=== PATIENT | female | born 1990 | race Two or more races ===

== ENCOUNTER 2024-12-01 00:03 | Emergency (ER) | payer OTHER ==
[~2024-12-01] VITALS: Ht 160 cm; Wt 79.8 kg
[2024-12-01 00:10] VITALS: BP 141/91; TEMP 97.5; O2SAT 100
== END 2024-12-01 02:09 | disposition home or self-care (01) ==
LOC: M ED 00:03
DX: B07.0 Plantar wart (principal)

== ENCOUNTER 2025-01-06 23:42 | Emergency (ER) | payer OTHER ==
[~2025-01-06] VITALS: Ht 162.6 cm; Wt 79.6 kg
[2025-01-06] MEDS ORDERED: CIPR500T39 (23:45)
[2025-01-07 02:46] LABS: BASO # 0.1 10^3/uL (0.0-0.2); BASO % 0.7 % (0.0-1.0); EOS # 0.2 10^3/uL (0.0-0.5); EOS % 1.8 % (0.0-3.0); HEMATOCRIT 40.1 % (36.0-47.0); HEMOGLOBIN 13.7 g/dl (12.0-15.5); LYMPH # 3.2 10^3/uL (1.5-5.0); LYMPH % 35.9 % (24.0-44.0); MEAN CORPUSCULAR HEMOGLOBIN 31.3 pg (27.0-33.0); MEAN CORPUSCULAR HGB CONC 34.2 g/dl (32.0-36.5); MEAN CORPUSCULAR VOLUME 91.6 fl (80.0-96.0); MONO # 0.8 10^3/uL (0.0-0.8); MONO % 8.6 % (2.0-8.0); NEUTROPHILS # 4.7 10^3/uL (1.5-8.5); NEUTROPHILS % 52.8 % (36.0-66.0); PLATELET COUNT, AUTOMATED 231 10^3/uL (150-450); RED BLOOD COUNT 4.38 10^6/uL (4.00-5.40); WHITE BLOOD COUNT 8.8 10^3/uL (4.0-10.0)
[2025-01-07 02:47] LABS: KETONE, URINE AUTO RFX NEGATIVE (NEGATIVE); LEUKOCYTE ESTERASE UR AUTO RFX NEGATIVE (NEGATIVE); MUCUS, URINE RFX SMALL (NEGATIVE); NITRITE, URINE AUTO RFX NEGATIVE (NEGATIVE); RBC, URINE AUTO RFX 0 /HPF (0-3); SQUAM EPITHELIAL CELL UR AURFX 2 /HPF (0-6); WBC, URINE AUTO RFX 1 /HPF (0-3)
[2025-01-07 03:16] LABS: BLOOD UREA NITROGEN 16 MG/DL (9-23); CARBON DIOXIDE LEVEL 25 MMOL/L (20-31); CHLORIDE LEVEL 109 MMOL/L (98-107); CREATININE FOR GFR 0.84 MG/DL (0.55-1.30); GLOMERULAR FILTRATION RATE > 60.0 (>60); GLUCOSE, FASTING 98 MG/DL (60-100); POTASSIUM SERUM 4.1 MMOL/L (3.5-5.1); SODIUM LEVEL 144 MMOL/L (136-145)
[2025-01-07 03:51] VITALS: BP 110/72; TEMP 97.5; O2SAT 100
== END 2025-01-07 03:51 | disposition home or self-care (01) ==
LOC: M ED 23:42
DX: R10.9 Unspecified abdominal pain (principal)

== ENCOUNTER 2025-03-07 06:01 | Observation (INO) | payer OTHER ==
[~2025-03-07] VITALS: Ht 162.6 cm; Wt 79.6 kg
[2025-03-07] VITALS (8 sets, daily range): BP systolic 109–141; BP diastolic 63–95; TEMP 97.3–97.7; O2SAT 91–99
[~2025-03-07 06:01] MED LIST: CIPR500T39
[2025-03-07] MEDS ORDERED: ROPIvacaine 0.5% 30ML VIAL ONE (06:03)
[2025-03-07] MEDS ORDERED: TRANEXAMIC ACID 100 MG/ML 10ML VIAL ONE (06:03)
[2025-03-07] MEDS ORDERED: ACETAMINOPHEN 1000MG/100ML IV BAG As Ordered ONE (06:50)
[2025-03-07] MEDS ORDERED: propofoL 200 MG/20 ML VIAL As Ordered ONE (06:50)
[2025-03-07] MEDS ORDERED: LIDOCAINE 2% 100MG/5ML SDV (FOR ANES.) As Ordered ONE (06:50)
[2025-03-07] MEDS ORDERED: ONDANSETRON 4MG 2ML VIAL As Ordered ONE (06:50)
[2025-03-07] MEDS: ceFAZolin SOD 2 GM IV ONCE IV ONE (06:50)
[2025-03-07] MEDS ORDERED: fentaNYL 100 MCG/2 ML INJECTION As Ordered ONE (06:51)
[2025-03-07] MEDS ORDERED: MIDAZOLAM INJ 2MG/2ML VIAL As Ordered ONE (06:51)
[2025-03-07] MEDS ORDERED: ROPIvacaine 0.5% 30ML VIAL As Ordered ONE (07:13)
[2025-03-07] MEDS: LR 1,000 ML IV SCH ×2 (07:16→11:35)
[2025-03-07] MEDS ORDERED: TRANEXAMIC ACID 100 MG/ML 10ML VIAL As Ordered ONE (07:17)
[2025-03-07] MEDS ORDERED: HYDROmorphone HCL 2MG/ML 1ML VIAL As Ordered ONE (07:56)
[2025-03-07] MEDS ORDERED: dexmedeTOMIDine (4MCG/ML)200MCG/50ML BTL (PRECEDEX) As Ordered ONE (09:47)
[2025-03-07] MEDS ORDERED: SUGAMMADEX SODIUM 500 MG/5 ML VIAL As Ordered ONE (09:48)
[2025-03-07] MEDS ORDERED: fentaNYL 100 MCG/2 ML INJECTION IV PRN (11:35)
[2025-03-07] MEDS ORDERED: ONDANSETRON 4MG 2ML VIAL IV PRN (11:35)
[2025-03-07] MEDS: HYDROMORPHONE HCL 0.5 MG/ 0.5 ML SYRINGE IV PRN ×2 (12:03→14:46)
[2025-03-07] MEDS: oxyCODONE 5MG TAB PO PRN ×2 (12:35→19:51)
[2025-03-07] MEDS ORDERED: oxyCODONE 5MG TAB PO ONE (15:25)
[2025-03-07] MEDS: oxyCODONE 5MG TAB PO ONE (16:15)
[2025-03-07] MEDS: MORPHINE 2 MG/ML 1ML VIAL IV STA (16:32)
[2025-03-07] MEDS ORDERED: IBUPROFEN 400MG TAB PO PRN (17:30)
[2025-03-07] MEDS ORDERED: HYDROMORPHONE HCL 0.5 MG/ 0.5 ML SYRINGE IV PRN ×2 (17:40→18:50)
[2025-03-07] MEDS: ONDANSETRON 4MG 2ML VIAL IV PRN (19:50)
[2025-03-07] MEDS: ASPIRIN 81MG ENTERIC TABLET PO SCH (22:13)
[2025-03-07] MEDS: ACETAMINOPHEN 500 MG TAB PO SCH (22:13)
[2025-03-08 00:27] VITALS: BP 107/65; TEMP 97.5; O2SAT 93
[2025-03-08 05:00] VITALS: BP 105/67; TEMP 97.9; O2SAT 96
[2025-03-08 07:23] LABS: BASO % 0.2 % (0.0-1.0); EOS % 0.3 % (0.0-3.0); HEMATOCRIT 35.5 % (36.0-47.0); HEMOGLOBIN 12.1 g/dl (12.0-15.5); LYMPH # 2.8 10^3/uL (1.5-5.0); LYMPH % 24.4 % (24.0-44.0); MEAN CORPUSCULAR HEMOGLOBIN 31.4 pg (27.0-33.0); MEAN CORPUSCULAR HGB CONC 34.1 g/dl (32.0-36.5); MEAN CORPUSCULAR VOLUME 92.2 fl (80.0-96.0); MONO # 1.1 10^3/uL (0.0-0.8); MONO % 9.5 % (2.0-8.0); NEUTROPHILS # 7.3 10^3/uL (1.5-8.5); NEUTROPHILS % 65.1 % (36.0-66.0); PLATELET COUNT, AUTOMATED 221 10^3/uL (150-450); RED BLOOD COUNT 3.85 10^6/uL (4.00-5.40); WHITE BLOOD COUNT 11.3 10^3/uL (4.0-10.0)
[2025-03-08 07:47] LABS: BLOOD UREA NITROGEN 8 MG/DL (9-23); CALCIUM LEVEL 8.3 MG/DL (8.5-10.1); CARBON DIOXIDE LEVEL 25 MMOL/L (20-31); CHLORIDE LEVEL 104 MMOL/L (98-107); CREATININE FOR GFR 0.72 MG/DL (0.55-1.30); GLOMERULAR FILTRATION RATE > 90.0 (>60); GLUCOSE, FASTING 94 MG/DL (60-100); MAGNESIUM LEVEL 1.8 MG/DL (1.8-2.4); POTASSIUM SERUM 3.7 MMOL/L (3.5-5.1); SODIUM LEVEL 137 MMOL/L (136-145)
[2025-03-08 08:00] VITALS: BP 115/69; TEMP 97.9; O2SAT 97
[2025-03-08] MEDS: oxyCODONE 5MG TAB PO PRN (08:19)
[2025-03-08 12:00] VITALS: BP 118/76; TEMP 97.9; O2SAT 98
== END 2025-03-08 12:45 | disposition home or self-care (01) ==
LOC: M SDC 06:01 → M MS5PR 06:02
PROVIDERS: ADMIT Student in an Organized Health Care Education/Training Program; ATTEND Student in an Organized Health Care Education/Training Program
DX: M21.161 Varus deformity, not elsewhere classified, right knee (principal); Z98.51 Tubal ligation status; F17.290 Nicotine dependence, other tobacco product, uncomplicated; Z82.49 Family history of ischemic heart disease and other diseases of the circulatory system; Z80.8 Family history of malignant neoplasm of other organs or systems; Z79.899 Other long term (current) drug therapy
CPT/HCPCS: 27457; 36415; 76000; 80048; 83735; 85025; 96374; 97116; 97161; 97530; C1713; C1762; C1763; J0131; J1100; J1171; J2250; J2405; J2795; J3010